=== PATIENT | female | born 1980 | race Two or more races ===

== ENCOUNTER 2018-09-10 11:26 | Outpatient (CLI) | payer OTHER | END 2018-09-10 11:29 | disposition home or self-care (01) | LOC: SONOGRAMA 11:26 | DX: E04.2 Nontoxic multinodular goiter (principal) ==

== ENCOUNTER 2020-08-16 06:38 | Day surgery (SDC) | payer OTHER ==
[~2020-08-16 06:38] MED LIST: BUSPAR PO; LEXAPRO5 MG PO; SYNTHROID175 MCG PO
== END 2020-08-16 17:55 | disposition home or self-care (01) ==
LOC: CIR.AMB 06:38
PROVIDERS: ATTEND Obstetrics & Gynecology
DX: Z30.2 Encounter for sterilization (principal); Z20.828 Contact with and (suspected) exposure to other viral communicable diseases

== ENCOUNTER 2021-02-25 14:09 | Emergency (ER) | payer OTHER ==
[~2021-02-25] VITALS: Ht 165.1 cm; Wt 106.6 kg
== END 2021-02-25 18:39 | disposition home or self-care (01) ==
LOC: ER 14:09
DX: B34.9 Viral infection, unspecified (principal); N39.0 Urinary tract infection, site not specified; Z03.818 Encounter for observation for suspected exposure to other biological agents ruled out